=== PATIENT | male | born 1955 | race Two or more races ===

== ENCOUNTER 2017-01-21 08:29 | Day surgery (SDC) | payer BC ==
[~2017-01-21] VITALS: Ht 167.6 cm; Wt 72.6 kg
[2017-01-21] VITALS (11 sets, daily range): BP systolic 94–109; BP diastolic 60–72
[2017-01-21] MEDS ORDERED: ASPIR 8181 MG ORAL (09:00)
[2017-01-21] MEDS ORDERED: Lidocaine 1% MPF 10mg/ml 5ml ONE (09:30)
[2017-01-21] MEDS ORDERED: Propofol 10mg/ml 20ml IV ONE (09:30)
[2017-01-21] MEDS ORDERED: LR 1000ml ONE (09:30)
--- NOTE | 2017-01-21 10:17 | Immediate Post-Op Evaluation ---
Immediate Post-Op Evalulation Immediate Post-Op Evalulation Procedure: egd/colonoscopy Date of Evaluation: Jan 21, 2017 Time of Evaluation: 10:16 IV Fluids: 500 Blood Pressure Systolic: 95 Blood Pressure Diastolic: 60 Pulse Rate: 65 Respiratory Rate: 14 O2 Sat by Pulse Oximetry: 100 Temperature (Fahrenheit): 97.7 Nausea: No Vomiting: No Complications none Patient Status: awake, reacts, no response, patent Drug: none APARNA INMAN CRNA Jan 21, 2017 10:17
--- NOTE | 2017-01-21 10:49 | 48 Hour Post Anesthesia Eval ---
Post Anesthesia Evaluation Procedure: egd/colonoscopy Date of Evaluation: Jan 21, 2017 Time of Evaluation: 10:48 Blood Pressure Systolic: 106 0: 74 Pulse Rate: 14 O2 Sat by Pulse Oximetry: 100 Airway: patent Nausea: No Vomiting: No Hydration Status: adequate Mental Status/LOC: patient returned to baseline Post-Anesthesia Complications: none Follow-up care needed: N/A APARNA INMAN CRNA Jan 21, 2017 10:49
--- NOTE | 2017-01-21 10:54 | Anethesia Preoperative Eval ---
Anesthesia Pre-op PMH/ROS General Date of Evaluation: Jan 21, 2017 Time of Evaluation: 10:52 Anesthesiologist: memo ASA Score: ASA 2 Mallampati Score Class I : Soft palate, uvula, fauces, pillars visible Class II: Soft palate, uvula, fauces visible Class III: Soft palate, base of uvula visible Class IV: Only hard plate visible Mallampati Classification: Class II Surgeon: lucy Diagnosis: gerd Surgical Procedure: egd/colonoscopy Anesthesia History: none Family History: no anesthesia problems Allergies: Coded Allergies: No Known Allergies (Unverified , 01/21/17) Medications: see eMAR Past Medical History Cardiovascular: Denies: CAD, HTN, DC, arrhythmia, other, valve dz Pulmonary: Denies: COPD, JESSICA, asthma, other Gastrointestinal/Genitourinary: Reports: GERD Neurologic/Psychiatric: Denies: CVA, TIA, dementia, depression/anxiety, other Endocrine: Denies: DM, hypothyroidism, other, steroids HEENT: Denies: [place] (L), [place] (R), cataract (L), cataract (R), glaucoma, other Hematology/Immune: Denies: DVT, anemia, bleeding disorder, other Musculoskeletal/Integumentary: Denies: DDD, DJD, OA, RA, edema, other Anesthesia Pre-op Phys. Exam Physician Exam Last Vital Signs Date Time Temp Pulse Resp B/P Pulse Ox O2 Delivery O2 Flow Rate FiO2 01/21/17 10:35 66 19 106/64 100 Room Air 01/21/17 10:10 97.0 Constitutional: NAD Neurologic: CN 2-12 intact Cardiovascular: RRR Respiratory: CTA Gastrointestinal: S/NT/ND Airway Exam Mallampati Score: Class II MO: full ROM: full Dentures: no lower, no upper Anesthesia Pre-op A/P Studies Pre-op Studies: EKG - sr Risk Assessment & Plan Plan: mac Status Change Before Surgery: No Pre-Antibiotics Drug: none APARNA INMAN CRNA Jan 21, 2017 10:54
--- NOTE | 2017-01-21 11:07 | Pre-Procedure Note/Attestation ---
Pre-Procedure Note/Attestation Complete Prior to Procedure Planned Procedure: not applicable Procedure Narrative: esophagogastroduodenoscopy colon Indications for Procedure Pre-Operative Diagnosis: Heme (+) Attestation I attest that I discussed the nature of the procedure; its benefits; risks and complications; and alternatives (and the risks and benefits of such alternatives ), prior to the procedure, with the patient (or the patient's legal freight representative). I attest that, if there was a reasonable possibility of needing a blood transfusion, the patient (or the patient's legal freight representative) was given the [facility] standardized written summary, pursuant to the [place] Blood Safety Act ([place] Health and Safety Code # 1645, as amended). I attest that I re-evaluated the patient just prior to the surgery and that there has been no change in the patient's H&P, except as documented below: VITOR CONTEH Jan 21, 2017 11:07
--- NOTE | 2017-01-21 11:08 | Endoscopy Procedure Note ---
Endoscopy Procedure Note Indication for Procedure: Heme (+) Operative Findings/Diagnosis: gastritis, polyp x 2 Specimen: yes Pt Tolerated Procedure Well: Yes Estimated Blood Loss: none Anesthesiologist: see notes Anesthesia: MAC, moderate sedation Implant(s) used?: No 50 yrs or older w/o bx or poly: Not Applicable 10yrs. F/U not recommended: Not Applicable If not recommended, why?: VITOR CONTEH Jan 21, 2017 11:08
--- NOTE | 2017-01-21 11:08 | Short Stay Surgery H&P ---
History of Present Illness History of Present Illness Chief Complaint see typed H&P HPI Gabriel Garcia is a 61 year old male who was admitted on for Other Fecal Abnormality Patient History Allergies: Coded Allergies: No Known Allergies (Unverified , 01/21/17) PAST MEDICAL HISTORY: Past Surgeries: Social History: Medication History Scheduled Aspirin* (Aspir 81*), 81 MG ORAL DAILY, (Reported) Physical Exam Vital Signs Last Vital Signs Date Time Temp Pulse Resp B/P Pulse Ox O2 Delivery O2 Flow Rate FiO2 01/21/17 10:55 97.0 61 22 109/72 100 Room Air Plan Attestation Are the patient's medical conditions optimized for surgery? VITOR CONTEH Jan 21, 2017 11:07
--- NOTE | 2017-01-21 11:09 | Brief Operative Note ---
Immediate Post Operative Note Operative Note Chief Complaint: heme (+) Pre-op Diagnosis: Heme (+) Procedure: EGD/bx, colon / bx Surgeon: humberto Anesthesiologist: see report Anesthesia: MAC Specimen: yes Complications: none Condition: stable Estimated Blood Loss: none Drains: none Implant(s) used?: No VITOR CONTEH Jan 21, 2017 11:09
--- NOTE | 2017-01-21 11:15 | Operative Note - Dictated ---
DATE OF OPERATION: 01/21/2017 GASTROLOGY PROCEDURE REPORT PROCEDURE: Upper gastroendoscopy with biopsy as well as colonoscopy with biopsy. SURGEON: Eulalia Stahl M.D. ANESTHESIA: Please see the separate anesthesiologist notes for details. PRE-ENDOSCOPIC DIAGNOSIS: Heme-positive stools. POST-ENDOSCOPIC DIAGNOSES: 1. Umbilicated antrum nodule, likely pancreatic and breast tissue, status post biopsy. 2. Erosive gastritis. 3. Erosive gastroesophageal junction on the gastric side, status post biopsy. 4. Diminutive distal transverse colon polyp, status post biopsy removal. 5. Diminutive sigmoid colon polyp, status post biopsy removal. 6. Mild internal hemorrhoids. PROCEDURE: The procedure, its risks, indications, alternatives, and possible complications were explained to the patient and informed consent was obtained. The diagnostic upper endoscope was introduced through the oropharynx and advanced into the duodenum. It was gradually withdrawn. The mucosa examined carefully. The rectal exam was then done and the colonoscope was introduced into the rectum and advanced to the terminal ileum without difficulty. The colonoscope was then gradually withdrawn. The mucosa examined carefully. Examination was notable for above findings. The endoscope was removed. The patient was sent to recovery in good condition. COMPLICATIONS: None. RECOMMENDATIONS: 1. Follow up biopsy results. 2. Check and treat Helicobacter pylori if positive. 3. Outpatient followup. Eulalia Stahl M.D. DR: TAM JOB#: [id number] CC: Eulalia Stahl M.D.; Fax#: [phone]
== END 2017-01-21 11:30 | disposition home or self-care (01) ==
LOC: GAS 08:29
DX: K92.1 Melena (principal); D12.3 Benign neoplasm of transverse colon; D12.5 Benign neoplasm of sigmoid colon; K64.8 Other hemorrhoids; K29.00 Acute gastritis without bleeding; K21.0 Gastro-esophageal reflux disease with esophagitis; K31.7 Polyp of stomach and duodenum; K31.9 Disease of stomach and duodenum, unspecified; Z79.82 Long term (current) use of aspirin
CPT/HCPCS: 43239; 45380; J2704; J7120; 94003; 94150